=== PATIENT | female | born 1970 | race Two or more races ===

== ENCOUNTER 2024-07-20 19:34 | Emergency (ER) | payer MEDICAID ==
[~2024-07-20] VITALS: Ht 152.4 cm; Wt 63.1 kg
[2024-07-20 22:17] VITALS: BP 173/93; PULSE 70; RESP 18; TEMP 97.9; O2SAT 98
[2024-07-20] MEDS: TRIAMCINOLONE 40MG/ML 1ML VIAL IX ONE (22:29)
[2024-07-20] MEDS ORDERED: MELO7.5T7 PO (22:45)
== END 2024-07-20 22:53 | disposition home or self-care (01) ==
LOC: ER 19:34
DX: M25.562 Pain in left knee (principal); G89.29 Other chronic pain
CPT/HCPCS: 20610; 73562; 99283; J3301

== ENCOUNTER 2025-03-09 00:35 | Emergency (ER) | payer MEDICAID ==
[~2025-03-09] VITALS: Ht 154.9 cm; Wt 75.0 kg
[2025-03-09 01:45] LABS: Urine Bacteria None Seen /hpf (None Seen)
[2025-03-09 01:57] LABS: Urine Blood TRACE /uL (Negative); Urine Clarity Clear (Clear); Urine Color Yellow (Yellow); Urine Mucus FEW (None Seen); Urine Protein, UAD TRACE (Negative); Urine Specific Gravity 1.026 (1.001-1.035); Urine Squamous Epithelial Cell FEW /hpf (<5); Urine Urobilinogen Normal (Negative); Urine WBC 48 /HPF (0-5)
[2025-03-09] MEDS ORDERED: FLUC150T38 PO (02:21)
[2025-03-09] MEDS ORDERED: METR-344 PO (02:21)
[2025-03-09] MEDS ORDERED: CEPH500C PO (02:21)
--- NOTE | 2025-03-09 02:23 | ED.PDOC ---
History of Present Illness HPI Comments 55 y/o obese F presents with c/o abnormal vaginal discharge, with associated head, suprapubic, pelvic, and vaginal pain and dysuria. Patient reports these sxs for the past several days. She reports green-brown vaginal discharge and intravaginal pain. 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 She denies having any nausea, vomiting, diarrhea, constipation, hematuria, flank pain, fever, or chills. Pt states she is not concerned for STDs, has one sexual partner. Chief Complaint: Urinary Time Seen by MD: 01:30 Primary Care Provider: CORBY Reviewed Notes: Nurses Notes, Medications, Allergies Allergies: Coded Allergies: NO KNOWN ALLERGIES (Unverified , 07/25/15) Home Meds Active Scripts Fluconazole (Diflucan) 150 Mg Tab, 1 TAB PO ONCE, #2 TAB 1 Refill 1 tab po x1. May repeat one week later if symptoms persist. Prov:BETTY FISHMAN MD 03/09/25 Metronidazole (Flagyl) 500 Mg Tab, 1 TAB PO TID for 7 Days, #21 TAB Prov:BETTY FISHMAN MD 03/09/25 Cephalexin Monohydrate (Cephalexin) 500 Mg Cap, 1 CAP PO QID for 10 Days, #40 CAP Prov:BETTY FISHMAN MD 03/09/25 Information Source: Patient Mode of Arrival: Ambulatory Severity: Moderate Timing: Days Duration: Since onset Prehospital treatment: None Past Medical History PAST MEDICAL HISTORY: DM (pre-DM) Surgical History: PATTERN ATTENDANT History: No Pertinent PATTERN ATTENDANT History Family History Family History: Reviewed,noncontributory to illness Social History Smoker: Non-Smoker Alcohol: Denies ETOH Use Drugs: Denies Drug Use Lives In: Home All Other Systems: Reviewed and Negative (Comprehensive systems review obtained and negative except for what is stated in the HPI.) Physical Exam General Appearance: No Apparent Distress, Obese HEENT: Other (Pupils and face symmetric. Moist mucous membranes.) Neck: Full Range of Motion, Normal Inspection Respiratory: Lungs Clear, No Accessory Muscle Use, No Respiratory Distress, Nor mal Breath Sounds Cardiovascular: No Edema, No JVD, Regular Rate/Rhythm Breast Exam: Deferred Gastrointestinal: Soft, Suprapubic, Tenderness Genitalia: Normal Pelvic: Deferred Rectal: Deferred Extremities: Normal inspection, Normal range of motion, Non-tender, No pedal edema Neurologic: Alert (Oriented x4), Normal Affect, Normal Mood, Other (Ambulatory) Cerebellar Function: NOT DONE Reflexes: NOT DONE Skin: Dry, Normal Color, Warm Lymphatic: NOT DONE Was a procedure done? Was a procedure done?: No Differential Dx Considerations may include: vaginitis, UTI, STD, among others X-Ray, Labs, Meds, VS Vital Signs Date Time Temp Pulse Resp B/P (MAP) Pulse Ox O2 Delivery O2 Flow Rate FiO2 03/09/25 00:50 98.3 78 16 144/72 (96) 95 98.3 Lab Test 03/09/25 00:50 Range/Units Urine Color Yellow Yellow Urine Clarity Clear Clear Urine pH 6.0 5.0-9.0 Urine Specific [place] 1.026 1.001-1.035 Urine Protein Trace H Negative Urine Ketones Trace Negative Urine Blood Trace H Negative /uL Urine Nitrite Negative Negative Urine Bilirubin Negative Negative Urine Urobilinogen Normal Negative mg/dL Urine Leukocyte Esterase 2+ Negative /uL Urine RBC 16 0 - 4 /hpf Urine Microscopic WBC 48 H 0-5 /HPF Urine Squamous Epithelial Cells Few <5 /hpf Urine Calcium Oxalate Crystals Many None Seen Urine Bacteria None seen None Seen /hpf Urine Mucus Few None Seen Urine Glucose Normal Normal mg/dL X-Ray, Labs, Meds, VS Comment 55 yo F with h/o DM c/o suprapubic pain, dysuria and vaginal d/c Vitals remarkable for BP 144/72 Exam remarkable for mild suprapubic tenderness to palpation. Nontender to percussion. No rebound or guarding. Rhythm strip independently interpreted by me: Sinus rhythm, rate 78, no ectopy. UA abnormal consistent with UTI Patient treated with the following in the ED: Rocephin 1 g IV, Toradol 30 mg IV On re-evaluation, patient appears comfortable. Repeat abdominal exam was benign. Vitals were stable. Patient appears stable for discharge with close outpatient follow-up with her OBGYN. Rx Keflex, Flagyl, Diflucan Time of 1ST Reevaluation: 02:00 Reevaluation 1ST: Unchanged Patient Education/Counseling: Diagnosis, Treatment, Need For Follow Up Family Education/Counseling: No Family Present Departure 1 Departure Time of Disposition: 02:36 Impression: Primary Impression: UTI (urinary tract infection) Qualified Codes: N30.00 - Acute cystitis without hematuria Additional Impression: Vaginitis Qualified Codes: N76.0 - Acute vaginitis Disposition: HOME / SELF CARE / HOMELESS Condition: Stable Additional Instructions: Your urine test showed you have a bladder infection. I have prescribed antibiotics for both a bladder and vaginal infection. Follow up with your autism specialist in 1-2 days. Return to ER for persistent or worsening symptoms. e-Prescriptions Fluconazole (Diflucan) 150 Mg Tab 1 TAB PO ONCE, #2 TAB 1 Refill 1 tab po x1. May repeat one week later if symptoms persist. Prov: BETTY FISHMAN MD 03/09/25 Metronidazole (Flagyl) 500 Mg Tab 1 TAB PO TID for 7 Days, #21 TAB Prov: BETTY FISHMAN MD 03/09/25 Cephalexin Monohydrate (Cephalexin) 500 Mg Cap 1 CAP PO QID for 10 Days, #40 CAP Prov: BETTY FISHMAN MD 03/09/25 Discharged With: Self Critical Care Note Critical Care Time?: No Stability Stability form required: No Heart Score Heart Score: Heart Score Response (Comments) Value History N/A 0 EKG N/A 0 Age N/A 0 Risk Factors N/A 0 Troponin N/A 0 Total 0 I personally scribed for BETTY FISHMAN MD ([email or web address]) on 03/09/25 at 02:23. Electronically submitted by Cyrus Ling ([email or web address]). BETTY FISHMAN MD March 09, 2025 02:23
[2025-03-09] MEDS: KETOROLAC TROMETH 30 MG/ML 1ML VIAL IV ONE (02:53)
[2025-03-09] MEDS: cefTRIAXone 1GM/50ML D5W 50 ML IV ONE (02:53)
[2025-03-09 02:57] VITALS: PULSE 73; RESP 18; TEMP 98.3; O2SAT 95
[2025-03-09 03:24] VITALS: BP 140/87; PULSE 64; RESP 12; O2SAT 99
== END 2025-03-09 03:24 | disposition home or self-care (01) ==
LOC: ER 00:35
DX: N39.0 Urinary tract infection, site not specified (principal); N76.0 Acute vaginitis; E11.9 Type 2 diabetes mellitus without complications
CPT/HCPCS: 81001; 87086; 96365; 96375; 99284; J0696; J1885

== ENCOUNTER 2025-03-24 20:06 | Emergency (ER) | payer MEDICAID ==
[~2025-03-24] VITALS: Ht 157.5 cm; Wt 62.2 kg
[~2025-03-24 20:06] MED LIST: CEPH500C PO; FLUC150T38 PO; METR-344 PO
--- NOTE | 2025-03-24 20:30 | ED.PDOC ---
History of Present Illness HPI Comments 55 y/o Nigerian speaking F presents with c/o vaginal discomfort, with associated yellow discharge, that began this morning. Patient is a poor historian. She reports recently finishing antibiotic course for a vaginal yeast infection she was prescribed during a previous ED visit for similar complaint. Informs of consulting her PCP when symptoms did not improve with antibiotics, initially, and being prescribed another medication before current symptoms began. She denies any vaginal bleeding, urinary symptoms, abdominal pain, or further associated symptoms. Time Seen by MD: 20:20 Primary Care Provider: DENIES Allergies: Coded Allergies: NO KNOWN ALLERGIES (Unverified , 07/25/15) Home Meds Active Scripts Clindamycin Hcl (Clindamycin Hcl) 300 Mg Cap, 1 CAP PO BID for 7 Days, #14 CAP Prov:STERLING BAILEY MD 03/24/25 Sulfamethoxazole W/Trimethopri (Bactrim Ds Tablet) 1 Tab Tb, 1 TAB PO BID for 7 Days, #14 TAB Prov:STERLING BAILEY MD 03/24/25 Fluconazole (Diflucan) 150 Mg Tab, 1 TAB PO ONCE, #2 TAB 1 Refill 1 tab po x1. May repeat one week later if symptoms persist. 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 Pertinent CITY EDITOR History Family History Family History: Reviewed,noncontributory to illness Social History Smoker: Non-Smoker Alcohol: Denies ETOH Use Drugs: Denies Drug Use Lives In: Home All Other Systems: Reviewed and Negative (Comprehensive systems review obtained and negative except for what is stated in the HPI.) Physical Exam General Appearance: No Apparent Distress, Normal HEENT: Normal ENT Inspection, Pharynx Normal, TMs Normal Neck: Full Range of Motion, Non-Tender, Normal, Normal Inspection Respiratory: Chest Non-Tender, Lungs Clear, No Accessory Muscle Use, No Respiratory Distress, Normal Breath Sounds Cardiovascular: No Edema, No JVD, No Murmur, No Gallop, Normal Peripheral Pulses, Regular Rate/Rhythm Breast Exam: Deferred Gastrointestinal: No Organomegaly, Non Tender, No Pulsatile Mass, Normal Bowel Sounds, Soft Genitalia: Deferred Pelvic: Deferred Rectal: Deferred Extremities: No calf tenderness, Normal capillary refill, Normal inspection, Normal range of motion, Non-tender, No pedal edema Musculoskeletal : Apperance: Normal Neurologic: Alert, quebracho tanner II-XII nml as Tested, No Motor Deficits, Normal Affect, Normal Mood, No Sensory Deficits Cerebellar Function: Normal Reflexes: Normal Skin: Dry, Normal Color, Warm Lymphatic: No Adenopathy Was a procedure done? Was a procedure done?: No Differential Dx Considerations may include: vaginitis, menorrhea, dysmenorrhea, UTI, among others X-Ray, Labs, Meds, VS Vital Signs Date Time Temp Pulse Resp B/P (MAP) Pulse Ox O2 Delivery O2 Flow Rate FiO2 03/24/25 21:43 100 16 95 Room Air* 0 21 03/24/25 21:43 98.0 100 16 140/99 (113) 95 98.0 03/24/25 20:30 100.1 124 18 137/88 (104) 95 100.1 Lab Test 03/24/25 20:22 Range/Units Urine Color Yellow Yellow Urine Clarity Clear Clear Urine pH 6.5 5.0-9.0 Urine Specific [place] 1.010 1.001-1.035 Urine Protein Negative Negative Urine Ketones Negative Negative Urine Blood 1+ H Negative /uL Urine Nitrite Negative Negative Urine Bilirubin Negative Negative Urine Urobilinogen Normal Negative mg/dL Urine Leukocyte Esterase 3+ Negative /uL Urine RBC 6 0 - 4 /hpf Urine Microscopic WBC 21 H 0-5 /HPF Urine Squamous Epithelial Cells Few <5 /hpf Urine Bacteria None seen None Seen /hpf Urine Glucose Normal Normal mg/dL Time of 1ST Reevaluation: 20:50 Reevaluation 1ST: Unchanged Patient Education/Counseling: Diagnosis, Treatment, Need For Follow Up Family Education/Counseling: No Family Present Departure 1 Departure Time of Disposition: 23:00 Impression: Primary Impression: UTI (urinary tract infection) Disposition: HOME / SELF CARE / HOMELESS Condition: Stable e-Prescriptions Clindamycin Hcl (Clindamycin Hcl) 300 Mg Cap 1 CAP PO BID for 7 Days, #14 CAP Prov: NOWLIS,STERLING A MD 03/24/25 Sulfamethoxazole W/Trimethopri (Bactrim Ds Tablet) 1 Tab Tb 1 TAB PO BID for 7 Days, #14 TAB Prov: STERLING BAILEY MD 03/24/25 Discharged With: Self Critical Care Note Critical Care Time?: No Stability Stability form required: No Heart Score Heart Score: Heart Score Response (Comments) Value History N/A 0 EKG N/A 0 Age N/A 0 Risk Factors N/A 0 Troponin N/A 0 Total 0 I personally scribed for STERLING BAILEY MD ([email or web address]) on 03/24/25 at 20:30. Electronically submitted by [employer]Cr[employer] Ling ([email or web address]). STERLING BAILEY MD Mar 24, 2025 20:30
[2025-03-24 20:39] LABS: Urine Bacteria None Seen /hpf (None Seen)
[2025-03-24 21:12] LABS: Urine Blood 1+ /uL (Negative); Urine Clarity Clear (Clear); Urine Color Yellow (Yellow); Urine Protein, UAD Negative (Negative); Urine Squamous Epithelial Cell FEW /hpf (<5); Urine Urobilinogen Normal (Negative); Urine WBC 21 /HPF (0-5); Urine pH 6.5 (5.0-9.0)
[2025-03-24] MEDS ORDERED: BACDST PO (21:29)
[2025-03-24] MEDS ORDERED: CLIN1CAP70 PO (21:30)
[2025-03-24 21:43] VITALS: BP 140/99; PULSE 100; RESP 16; TEMP 98; O2SAT 95
[2025-03-24] MEDS: SULFAMETHOX W/TRIMETH(800/160MG) DS TAB PO ONE (21:52)
== END 2025-03-24 21:47 | disposition home or self-care (01) ==
LOC: ER 20:13
DX: N39.0 Urinary tract infection, site not specified (principal); E11.9 Type 2 diabetes mellitus without complications; Z98.890 Other specified postprocedural states; Z79.899 Other long term (current) drug therapy
CPT/HCPCS: 81001

== ENCOUNTER 2025-06-24 15:04 | Outpatient (CLI) | payer MEDICAID ==
[~2025-06-24 15:04] MED LIST changes: +BACDST PO; +CLIN1CAP70 PO
[2025-06-24 15:24] LABS: Urine Protein, UAD TRACE (Negative)
== END 2025-06-24 17:00 | disposition home or self-care (01) ==
LOC: LAB 15:04
PROVIDERS: ATTEND Urology
DX: R31.0 Gross hematuria (principal)
CPT/HCPCS: 81001; 87086